=== PATIENT | male | born 1940 | race Caucasian/White ===

== ENCOUNTER 2019-03-30 09:21 | Day surgery (SDC) | payer MEDICARE, BC ==
[~2019-03-30 09:21] MED LIST: Midazolam 1 MG/ML 2 ML SDV ONE; Propofol 200 MG/20 ML SDV ONE
[2019-03-30] MEDS ORDERED: Lactated Ringers 1,000 ML IV SCH (10:00)
[2019-03-30] MEDS ORDERED: Sodium Chloride 0.9% 10 ML Syringe FLUSH PRN (10:00)
--- NOTE | 2019-03-30 11:10 | PCM.HPR ---
H & P Addendum review - H & P Addendum Review Date of Original H & P: 03/27/19 Date Reviewed: 03/30/19 Time Reviewed: 11:10 Patient was Examined: No Changes
[2019-03-30] MEDS ORDERED: Midazolam 1 MG/ML 2 ML SDV ONE (11:18)
[2019-03-30] MEDS ORDERED: Propofol 200 MG/20 ML SDV ONE (11:18)
--- NOTE | 2019-03-30 11:42 | PCM.OPNOTE ---
- General Post-Op/Procedure Note Date of Surgery/Procedure: 03/30/19 Operative Procedure(s): Colonoscopy Findings: Sig Tics Pre Op Diagnosis: Hx Polyps Post-Op Diagnosis: Same Anesthesia Technique: MAC Primary Surgeon: Judd Garza Anesthesia Provider: Geena Dobson Complications: None Condition: Good
[2019-03-30 13:36] VITALS: BP 122/96; PULSE 60
--- NOTE | 2019-03-31 10:19 | OR ---
Date of Procedure: 03/30/2019 PREOPERATIVE DIAGNOSIS: History of colon polyps. POSTOPERATIVE DIAGNOSIS: Sigmoid diverticulosis. PROCEDURE: Colonoscopy. ANESTHESIA: IV sedation. DESCRIPTION OF PROCEDURE: The patient was brought to the procedure room where he was placed on his left side and IV sedation administered. Digital rectal exam was performed which was normal. Colonoscope was inserted and advanced to the level of the cecum with some difficulty getting around the hepatic flexure requiring pressure on the abdomen. Cecum was reached and confirmed by identifying the appendiceal lumen and ileocecal valve. Prep was good and surfaces were well visualized. Upon withdrawing the scope, the ascending, transverse, and descending colon were normal in appearance. Sigmoid colon had several small diverticula present. Rectum was normal and retroflexion was normal. Air was removed and the scope withdrawn. The patient tolerated the procedure well and returned to Recovery in stable condition. No further colon screening is necessary due to the patient's age. DARREN LOWERY MD /[id number]
== END 2019-03-30 13:10 | disposition home or self-care (01) ==
LOC: LL.SDS 09:21
PROVIDERS: ATTEND Surgery
DX: Z12.11 Encounter for screening for malignant neoplasm of colon (principal); K57.30 Diverticulosis of large intestine without perforation or abscess without bleeding; I10 Essential (primary) hypertension; J44.9 Chronic obstructive pulmonary disease, unspecified; K21.9 Gastro-esophageal reflux disease without esophagitis; Z88.6 Allergy status to analgesic agent; Z87.891 Personal history of nicotine dependence; Z86.010 Personal history of colon polyps; Z79.82 Long term (current) use of aspirin; Z79.899 Other long term (current) drug therapy
CPT/HCPCS: G0105; J2250; J2704; J7120; 00812

== ENCOUNTER 2021-10-02 07:46 | Day surgery (SDC) | payer MEDICARE, BC ==
[~2021-10-02 07:46] MED LIST changes: -Midazolam 1 MG/ML 2 ML SDV ONE; +fentaNYL 250 MCG/5 ML SDV ONE
[2021-10-02] MEDS ORDERED: Lactated Ringers 1,000 ML IV SCH (08:00)
[2021-10-02] MEDS ORDERED: Sodium Chloride 0.9% 10 ML Syringe FLUSH SCH (08:00)
[2021-10-02] MEDS ORDERED: Glycopyrrolate 0.2 MG/ML SDV ONE (09:00)
[2021-10-02] MEDS ORDERED: Ondansetron 4 MG/2 ML SDV ONE (09:00)
[2021-10-02] MEDS ORDERED: fentaNYL 250 MCG/5 ML SDV ONE (09:00)
[2021-10-02] MEDS ORDERED: Ketorolac 30 MG/ML SDV ONE (09:00)
[2021-10-02] MEDS ORDERED: Rocuronium 100 MG/10 ML MDV ONE (09:00)
[2021-10-02] MEDS ORDERED: Lidocaine 2% 100 MG/5 ML Syringe ONE (09:00)
[2021-10-02] MEDS ORDERED: Propofol 200 MG/20 ML SDV ONE (09:00)
[2021-10-02] MEDS ORDERED: ceFAZolin 1 GM Vial ONE (09:00)
[2021-10-02] MEDS ORDERED: Dexamethasone 10 MG/ML SDV ONE (09:00)
[2021-10-02] MEDS ORDERED: Neostigmine Methylsulfate 10 MG/10 ML MDV ONE (09:00)
[2021-10-02 13:26] VITALS: BP 151/103; PULSE 76
== END 2021-10-02 12:55 | disposition home or self-care (01) ==
LOC: LL.SDS 07:46
PROVIDERS: ATTEND Surgery
DX: K40.90 Unilateral inguinal hernia, without obstruction or gangrene, not specified as recurrent (principal); D17.6 Benign lipomatous neoplasm of spermatic cord; E87.6 Hypokalemia; H61.23 Impacted cerumen, bilateral; N30.00 Acute cystitis without hematuria; N40.0 Benign prostatic hyperplasia without lower urinary tract symptoms; K21.9 Gastro-esophageal reflux disease without esophagitis; I10 Essential (primary) hypertension; E78.5 Hyperlipidemia, unspecified; M81.0 Age-related osteoporosis without current pathological fracture; J44.9 Chronic obstructive pulmonary disease, unspecified; Z98.890 Other specified postprocedural states; Z79.82 Long term (current) use of aspirin; Z88.8 Allergy status to other drugs, medicaments and biological substances; Z87.891 Personal history of nicotine dependence
CPT/HCPCS: 00750; 88304; C1781; J0690; J1100; J1885; J2405; J2704; J2710; J3010; J3490; J7120

== ENCOUNTER 2022-01-23 12:43 | Inpatient (IN) | payer MEDICARE, BC ==
[2022-01-23] MEDS ORDERED: AMMONIUM LACTATE TOP PRN (17:06)
[2022-01-23] MEDS ORDERED: Lidocaine/Prilocaine 2.5-2.5% Crm 5 GM Tube TOP PRN (17:06)
[2022-01-23] MEDS ORDERED: Non-Formulary Medication 1 Each TOP SCH (17:15)
[2022-01-23] MEDS ORDERED: Non-Formulary Medication 1 Each (Dexamethasone [Dexamethasone] 4 MG Tablet) PO SCH (17:15)
[2022-01-23] MEDS: guaiFENesin 600 MG Tab.ER PO SCH ×2 (18:00→18:52)
[2022-01-23] MEDS ORDERED: Sodium Chloride 0.9% 10 ML Syringe FLUSH ONE (18:13)
[2022-01-23] MEDS: Meclizine 25 MG Tab PO SCH (18:51)
[2022-01-23] MEDS: Acyclovir 200 MG Cap PO SCH (18:51)
[2022-01-23] MEDS: Carvedilol 6.25 MG Tab PO SCH (18:51)
[2022-01-23] MEDS: Calcium Carbonate/Vitamin D3 625 MG-125 Unit Tab PO SCH (18:51)
[2022-01-23] MEDS: Doxazosin 2 MG Tab PO SCH (21:06)
[2022-01-23] MEDS: atorvaSTATin 10 MG Tab PO SCH (21:06)
[2022-01-24 08:23] LABS: CHLORIDE,CL 108 mmol/L (98-107); SODIUM,NA 142 mmol/L (136-145)
[2022-01-24] MEDS: Lutein/Minerals/Vitamin C/Vitamin E Acetate Cap PO SCH (08:25)
[2022-01-24] MEDS: guaiFENesin 600 MG Tab.ER PO SCH ×2 (08:25→17:20)
[2022-01-24] MEDS: Omeprazole 20 MG Cap.CR PO SCH (08:25)
[2022-01-24] MEDS: Meclizine 25 MG Tab PO SCH ×3 (08:25→17:24)
[2022-01-24] MEDS: Magnesium Chloride 64 MG Tab.ER PO SCH (08:25)
[2022-01-24] MEDS: Multivitamin Tab PO SCH (08:25)
[2022-01-24] MEDS: Aspirin 81 MG Tab.EC PO SCH (08:25)
[2022-01-24] MEDS: Lisinopril 20 MG Tab PO SCH (08:25)
[2022-01-24] MEDS: Acyclovir 200 MG Cap PO SCH ×2 (08:25→17:24)
[2022-01-24] MEDS: Carvedilol 6.25 MG Tab PO SCH ×2 (08:25→17:20)
[2022-01-24] MEDS: Calcium Carbonate/Vitamin D3 625 MG-125 Unit Tab PO SCH ×2 (08:26→17:20)
[2022-01-24 08:29] LABS: ANION GAP 17.5 meq/L (7-15)
[2022-01-24] MEDS: [UNRECOGNIZED DRUG - OTHER] PO SCH (08:34)
[2022-01-24] MEDS: atorvaSTATin 10 MG Tab PO SCH (20:12)
[2022-01-24] MEDS: Doxazosin 2 MG Tab PO SCH (20:12)
[2022-01-25] MEDS: Carvedilol 6.25 MG Tab PO SCH ×2 (09:11→19:37)
[2022-01-25] MEDS: Meclizine 25 MG Tab PO SCH ×3 (09:15→19:38)
[2022-01-25] MEDS: Magnesium Chloride 64 MG Tab.ER PO SCH (09:16)
[2022-01-25] MEDS: Aspirin 81 MG Tab.EC PO SCH (09:16)
[2022-01-25] MEDS: guaiFENesin 600 MG Tab.ER PO SCH ×2 (09:17→19:38)
[2022-01-25] MEDS: [UNRECOGNIZED DRUG - OTHER] PO SCH (09:17)
[2022-01-25] MEDS: Omeprazole 20 MG Cap.CR PO SCH (09:17)
[2022-01-25] MEDS: Lutein/Minerals/Vitamin C/Vitamin E Acetate Cap PO SCH (09:17)
[2022-01-25] MEDS: Calcium Carbonate/Vitamin D3 625 MG-125 Unit Tab PO SCH ×2 (09:18→19:37)
[2022-01-25] MEDS: Lisinopril 20 MG Tab PO SCH (09:18)
[2022-01-25] MEDS: Multivitamin Tab PO SCH (09:19)
[2022-01-25] MEDS: Acyclovir 200 MG Cap PO SCH ×2 (09:19→19:38)
[2022-01-25] MEDS: Acetaminophen 325 MG Tab PO PRN (13:19)
[2022-01-25] MEDS: Doxazosin 2 MG Tab PO SCH (19:37)
[2022-01-25] MEDS: atorvaSTATin 10 MG Tab PO SCH (19:37)
[2022-01-26] MEDS: Omeprazole 20 MG Cap.CR PO SCH (08:53)
[2022-01-26] MEDS: Multivitamin Tab PO SCH (08:54)
[2022-01-26] MEDS: Aspirin 81 MG Tab.EC PO SCH (08:54)
[2022-01-26] MEDS: Meclizine 25 MG Tab PO SCH ×3 (08:54→17:43)
[2022-01-26] MEDS: Magnesium Chloride 64 MG Tab.ER PO SCH (08:54)
[2022-01-26] MEDS: Acyclovir 200 MG Cap PO SCH ×2 (08:55→17:43)
[2022-01-26] MEDS: Carvedilol 6.25 MG Tab PO SCH ×2 (08:55→17:43)
[2022-01-26] MEDS: guaiFENesin 600 MG Tab.ER PO SCH ×2 (08:56→17:44)
[2022-01-26] MEDS: Lisinopril 20 MG Tab PO SCH (08:57)
[2022-01-26] MEDS: Lutein/Minerals/Vitamin C/Vitamin E Acetate Cap PO SCH (08:57)
[2022-01-26] MEDS: Calcium Carbonate/Vitamin D3 625 MG-125 Unit Tab PO SCH ×2 (08:58→17:43)
[2022-01-26] MEDS: [UNRECOGNIZED DRUG - OTHER] PO SCH (08:58)
[2022-01-26] MEDS: Sulfamethoxazole/Trimethoprim 800-160 MG Tab PO SCH (12:16)
[2022-01-26] MEDS: Doxazosin 2 MG Tab PO SCH (19:10)
[2022-01-26] MEDS: atorvaSTATin 10 MG Tab PO SCH (19:11)
[2022-01-27] MEDS: Acyclovir 200 MG Cap PO SCH ×2 (07:46→17:13)
[2022-01-27] MEDS: Multivitamin Tab PO SCH (07:47)
[2022-01-27] MEDS: guaiFENesin 600 MG Tab.ER PO SCH ×2 (07:47→17:15)
[2022-01-27] MEDS: Calcium Carbonate/Vitamin D3 625 MG-125 Unit Tab PO SCH ×2 (07:48→17:15)
[2022-01-27] MEDS: Carvedilol 6.25 MG Tab PO SCH ×2 (07:48→17:14)
[2022-01-27] MEDS: Omeprazole 20 MG Cap.CR PO SCH (07:48)
[2022-01-27] MEDS: Aspirin 81 MG Tab.EC PO SCH (07:48)
[2022-01-27] MEDS: Lutein/Minerals/Vitamin C/Vitamin E Acetate Cap PO SCH (07:49)
[2022-01-27] MEDS: Magnesium Chloride 64 MG Tab.ER PO SCH (07:49)
[2022-01-27] MEDS: Lisinopril 20 MG Tab PO SCH (07:49)
[2022-01-27] MEDS: Meclizine 25 MG Tab PO SCH ×3 (07:50→17:15)
[2022-01-27] MEDS: [UNRECOGNIZED DRUG - OTHER] PO SCH (07:52)
[2022-01-27] MEDS: Acetaminophen 325 MG Tab PO PRN (11:28)
[2022-01-27] MEDS: atorvaSTATin 10 MG Tab PO SCH (20:10)
[2022-01-27] MEDS: Doxazosin 2 MG Tab PO SCH (20:10)
[2022-01-28] MEDS: Sulfamethoxazole/Trimethoprim 800-160 MG Tab PO SCH (08:33)
[2022-01-28] MEDS: guaiFENesin 600 MG Tab.ER PO SCH ×2 (08:33→17:19)
[2022-01-28] MEDS: Lutein/Minerals/Vitamin C/Vitamin E Acetate Cap PO SCH (08:33)
[2022-01-28] MEDS: Carvedilol 6.25 MG Tab PO SCH ×2 (08:35→17:19)
[2022-01-28] MEDS: Aspirin 81 MG Tab.EC PO SCH (08:36)
[2022-01-28] MEDS: Meclizine 25 MG Tab PO SCH ×3 (08:36→17:19)
[2022-01-28] MEDS: Omeprazole 20 MG Cap.CR PO SCH (08:36)
[2022-01-28] MEDS: Magnesium Chloride 64 MG Tab.ER PO SCH (08:36)
[2022-01-28] MEDS: Calcium Carbonate/Vitamin D3 625 MG-125 Unit Tab PO SCH ×2 (08:36→17:19)
[2022-01-28] MEDS: Lisinopril 20 MG Tab PO SCH (08:37)
[2022-01-28] MEDS: Acyclovir 200 MG Cap PO SCH ×2 (08:37→17:19)
[2022-01-28] MEDS: Multivitamin Tab PO SCH (08:37)
[2022-01-28] MEDS: [UNRECOGNIZED DRUG - OTHER] PO SCH (08:40)
[2022-01-28] MEDS: atorvaSTATin 10 MG Tab PO SCH (19:09)
[2022-01-28] MEDS: Doxazosin 2 MG Tab PO SCH (19:09)
[2022-01-29] MEDS: Carvedilol 6.25 MG Tab PO SCH ×2 (08:05→17:15)
[2022-01-29] MEDS: Omeprazole 20 MG Cap.CR PO SCH (08:05)
[2022-01-29] MEDS: Magnesium Chloride 64 MG Tab.ER PO SCH (08:05)
[2022-01-29] MEDS: Multivitamin Tab PO SCH (08:05)
[2022-01-29] MEDS: Acyclovir 200 MG Cap PO SCH ×2 (08:05→17:15)
[2022-01-29] MEDS: Lisinopril 20 MG Tab PO SCH (08:06)
[2022-01-29] MEDS: Lutein/Minerals/Vitamin C/Vitamin E Acetate Cap PO SCH (08:06)
[2022-01-29] MEDS: Meclizine 25 MG Tab PO SCH ×3 (08:06→17:15)
[2022-01-29] MEDS: guaiFENesin 600 MG Tab.ER PO SCH ×2 (08:06→17:15)
[2022-01-29] MEDS: Aspirin 81 MG Tab.EC PO SCH (08:06)
[2022-01-29] MEDS: Calcium Carbonate/Vitamin D3 625 MG-125 Unit Tab PO SCH ×2 (08:07→17:15)
[2022-01-29] MEDS: [UNRECOGNIZED DRUG - OTHER] PO SCH (08:09)
[2022-01-29] MEDS: atorvaSTATin 10 MG Tab PO SCH (19:33)
[2022-01-29] MEDS: Doxazosin 2 MG Tab PO SCH (19:33)
[2022-01-30 07:24] VITALS: BP 119/75; PULSE 73
[2022-01-30] MEDS: Acetaminophen 325 MG Tab PO PRN (07:28)
[2022-01-30] MEDS: Meclizine 25 MG Tab PO SCH ×2 (07:29→11:49)
[2022-01-30] MEDS: Omeprazole 20 MG Cap.CR PO SCH (07:29)
[2022-01-30] MEDS: Magnesium Chloride 64 MG Tab.ER PO SCH (07:30)
[2022-01-30] MEDS: Acyclovir 200 MG Cap PO SCH (07:30)
[2022-01-30] MEDS: Calcium Carbonate/Vitamin D3 625 MG-125 Unit Tab PO SCH (07:31)
[2022-01-30] MEDS: Lisinopril 20 MG Tab PO SCH (07:32)
[2022-01-30] MEDS: guaiFENesin 600 MG Tab.ER PO SCH (07:32)
[2022-01-30] MEDS: Lutein/Minerals/Vitamin C/Vitamin E Acetate Cap PO SCH (07:33)
[2022-01-30] MEDS: Carvedilol 6.25 MG Tab PO SCH (07:33)
[2022-01-30] MEDS: Multivitamin Tab PO SCH (07:34)
[2022-01-30] MEDS: Sulfamethoxazole/Trimethoprim 800-160 MG Tab PO SCH (07:34)
[2022-01-30] MEDS: Aspirin 81 MG Tab.EC PO SCH (07:34)
[2022-01-30] MEDS: [UNRECOGNIZED DRUG - OTHER] PO SCH (07:38)
== END 2022-01-30 13:40 | disposition home or self-care (01) | DRG 948 ==
LOC: LL.MS 15:30
PROVIDERS: ADMIT Emergency Medicine; ATTEND Emergency Medicine
DX: R53.81 Other malaise (principal); C90.00 Multiple myeloma not having achieved remission; I10 Essential (primary) hypertension; H35.30 Unspecified macular degeneration; D64.9 Anemia, unspecified; K21.9 Gastro-esophageal reflux disease without esophagitis; E78.5 Hyperlipidemia, unspecified; M81.0 Age-related osteoporosis without current pathological fracture; E78.00 Pure hypercholesterolemia, unspecified; K57.90 Diverticulosis of intestine, part unspecified, without perforation or abscess without bleeding; N40.0 Benign prostatic hyperplasia without lower urinary tract symptoms; E66.9 Obesity, unspecified; M54.9 Dorsalgia, unspecified; G89.29 Other chronic pain; Z88.6 Allergy status to analgesic agent; Z79.899 Other long term (current) drug therapy; Z98.49 Cataract extraction status, unspecified eye; Z68.29 Body mass index [BMI] 29.0-29.9, adult; Z79.82 Long term (current) use of aspirin
CPT/HCPCS: 36415; 80053; 83735; 85025; 97110-GO; 97110-GP; 97161-GP; 97165-GO; 97530-GO; 97530-GP; 97535-GO; A9270-GY; J1642; J3490

== ENCOUNTER 2022-03-19 08:55 | Inpatient (IN) | payer MEDICARE, BC ==
[2022-03-19 09:49] LABS: CHLORIDE,CL 101 mmol/L (98-107); SODIUM,NA 134 mmol/L (136-145)
[2022-03-19 09:50] LABS: ANION GAP 17.4 meq/L (7-15); ESTIMATED GFR 49 mL/min (>=60)
[2022-03-19] MEDS ORDERED: cefTRIAXone 1 GM in Sodium Chloride 0.9% 100 ML IV ONE (10:23)
[2022-03-19] MEDS ORDERED: Non-Formulary Medication 1 Each (Dexamethasone [Dexamethasone] 4 MG Tablet) PO SCH (12:45)
[2022-03-19] MEDS: Acetaminophen 325 MG Tab PO PRN (18:08)
[2022-03-19] MEDS: Acyclovir 200 MG Cap PO SCH (18:08)
[2022-03-19] MEDS: Carvedilol 6.25 MG Tab PO SCH (18:08)
[2022-03-19] MEDS: Meclizine 25 MG Tab PO SCH (18:09)
[2022-03-19] MEDS: Enoxaparin 30 MG/0.3 ML Syringe SUBCUT SCH (18:09)
[2022-03-19] MEDS: Doxazosin 2 MG Tab PO SCH (19:36)
[2022-03-19] MEDS: atorvaSTATin 10 MG Tab PO SCH (19:36)
[2022-03-20 08:00] LABS: ANION GAP 14.7 meq/L (7-15)
[2022-03-20] MEDS: Sulfamethoxazole/Trimethoprim 800-160 MG Tab PO SCH (08:34)
[2022-03-20] MEDS: Acyclovir 200 MG Cap PO SCH ×2 (08:37→17:36)
[2022-03-20] MEDS: Omeprazole 20 MG Cap.CR PO SCH (08:37)
[2022-03-20] MEDS: Meclizine 25 MG Tab PO SCH ×3 (08:38→17:36)
[2022-03-20] MEDS: Aspirin 81 MG Tab.EC PO SCH (08:38)
[2022-03-20] MEDS: Carvedilol 6.25 MG Tab PO SCH ×2 (08:39→17:37)
[2022-03-20] MEDS: Lisinopril 20 MG Tab PO SCH (08:39)
[2022-03-20] MEDS ORDERED: Sodium Chloride 0.9% 500 ML IV SCH (08:45)
[2022-03-20] MEDS: cefTRIAXone 1 GM in Sodium Chloride 0.9% 100 ML IV SCH (10:39)
[2022-03-20] MEDS: Sodium Chloride 0.9% 1,000 ML IV SCH ×2 (12:27→22:30)
[2022-03-20] MEDS: Enoxaparin 30 MG/0.3 ML Syringe SUBCUT SCH (17:37)
[2022-03-20] MEDS: Doxazosin 2 MG Tab PO SCH (19:35)
[2022-03-20] MEDS: atorvaSTATin 10 MG Tab PO SCH (19:36)
[2022-03-20] MEDS: Acetaminophen 325 MG Tab PO PRN (21:25)
[2022-03-21] MEDS: Acyclovir 200 MG Cap PO SCH ×2 (07:00→18:24)
[2022-03-21] MEDS: Meclizine 25 MG Tab PO SCH ×3 (07:01→18:24)
[2022-03-21] MEDS: Aspirin 81 MG Tab.EC PO SCH (07:01)
[2022-03-21] MEDS: Omeprazole 20 MG Cap.CR PO SCH (07:02)
[2022-03-21] MEDS: Carvedilol 6.25 MG Tab PO SCH (07:03)
[2022-03-21] MEDS: Lisinopril 20 MG Tab PO SCH (07:03)
[2022-03-21] MEDS: Acetaminophen 325 MG Tab PO PRN (07:06)
[2022-03-21 07:17] LABS: ANION GAP 15.2 meq/L (7-15)
[2022-03-21] MEDS ORDERED: Sodium Chloride 0.9% 1,000 ML IV ONE ×2 (09:30→15:25)
[2022-03-21] MEDS: cefTRIAXone 1 GM in Sodium Chloride 0.9% 100 ML IV SCH (10:33)
[2022-03-21] MEDS: Enoxaparin 30 MG/0.3 ML Syringe SUBCUT SCH (18:25)
[2022-03-21] MEDS: atorvaSTATin 10 MG Tab PO SCH (19:50)
[2022-03-22] MEDS: Doxazosin 2 MG Tab PO SCH ×2 (00:58→20:47)
[2022-03-22 08:03] LABS: ANION GAP 15.1 meq/L (7-15)
[2022-03-22] MEDS: Meclizine 25 MG Tab PO SCH ×3 (08:29→17:40)
[2022-03-22] MEDS: Omeprazole 20 MG Cap.CR PO SCH (08:29)
[2022-03-22] MEDS: Acyclovir 200 MG Cap PO SCH ×2 (08:30→17:40)
[2022-03-22] MEDS: Acetaminophen 325 MG Tab PO PRN (11:17)
[2022-03-22] MEDS: cefTRIAXone 1 GM in Sodium Chloride 0.9% 100 ML IV SCH (11:22)
[2022-03-22] MEDS: atorvaSTATin 10 MG Tab PO SCH (20:47)
[2022-03-23] MEDS: Acyclovir 200 MG Cap PO SCH ×2 (07:34→17:48)
[2022-03-23] MEDS: Omeprazole 20 MG Cap.CR PO SCH (07:35)
[2022-03-23] MEDS: Sulfamethoxazole/Trimethoprim 800-160 MG Tab PO SCH (07:35)
[2022-03-23] MEDS: Meclizine 25 MG Tab PO SCH (07:35)
[2022-03-23 08:57] LABS: ANION GAP 10.9 meq/L (7-15)
[2022-03-23] MEDS: cefTRIAXone 1 GM in Sodium Chloride 0.9% 100 ML IV SCH (14:41)
[2022-03-23] MEDS: Acetaminophen 325 MG Tab PO PRN (16:23)
[2022-03-24 07:55] LABS: ANION GAP 11.3 meq/L (7-15)
[2022-03-24] MEDS: Omeprazole 20 MG Cap.CR PO SCH (08:12)
[2022-03-24] MEDS: Acyclovir 200 MG Cap PO SCH ×2 (08:12→17:56)
[2022-03-24] MEDS: cefTRIAXone 1 GM in Sodium Chloride 0.9% 100 ML IV SCH (11:42)
[2022-03-24 17:40] VITALS: BP 147/64; PULSE 79
[2022-03-25] MEDS ORDERED: Ciprofloxacin 500 MG Tab PO SCH (18:00)
== END 2022-03-24 23:45 | disposition swing bed (61) | DRG 690 ==
LOC: LL.ED 08:55 → UNDOADMIN 10:55 → LL.MS 10:55 → UNDODISIN 03-24 23:45 → LL.MS 03-24 23:45
PROVIDERS: ADMIT Emergency Medicine; ATTEND Emergency Medicine
DX: N39.0 Urinary tract infection, site not specified (principal); N17.9 Acute kidney failure, unspecified; R53.1 Weakness; C90.00 Multiple myeloma not having achieved remission; Z94.84 Stem cells transplant status; H35.30 Unspecified macular degeneration; D64.9 Anemia, unspecified; I95.2 Hypotension due to drugs; E78.5 Hyperlipidemia, unspecified; D63.8 Anemia in other chronic diseases classified elsewhere; I10 Essential (primary) hypertension; N40.0 Benign prostatic hyperplasia without lower urinary tract symptoms; K57.90 Diverticulosis of intestine, part unspecified, without perforation or abscess without bleeding; K44.9 Diaphragmatic hernia without obstruction or gangrene; E66.9 Obesity, unspecified; G89.29 Other chronic pain; M54.9 Dorsalgia, unspecified; I12.9 Hypertensive chronic kidney disease with stage 1 through stage 4 chronic kidney disease, or unspecified chronic kidney disease; Z88.8 Allergy status to other drugs, medicaments and biological substances; N18.30 Chronic kidney disease, stage 3 unspecified; M81.0 Age-related osteoporosis without current pathological fracture; K21.9 Gastro-esophageal reflux disease without esophagitis; W06.XXXA Fall from bed, initial encounter; E83.42 Hypomagnesemia; J44.9 Chronic obstructive pulmonary disease, unspecified; E86.0 Dehydration; E78.2 Mixed hyperlipidemia; Z79.82 Long term (current) use of aspirin; Z79.899 Other long term (current) drug therapy; Z79.52 Long term (current) use of systemic steroids; Z68.27 Body mass index [BMI] 27.0-27.9, adult; Z97.3 Presence of spectacles and contact lenses; Z97.2 Presence of dental prosthetic device (complete) (partial); Z87.19 Personal history of other diseases of the digestive system; Z86.010 Personal history of colon polyps; Z87.440 Personal history of urinary (tract) infections; Z85.828 Personal history of other malignant neoplasm of skin; Z98.42 Cataract extraction status, left eye; Z98.41 Cataract extraction status, right eye; Z90.89 Acquired absence of other organs; Z98.890 Other specified postprocedural states; T50.995A Adverse effect of other drugs, medicaments and biological substances, initial encounter; Y92.89 Other specified places as the place of occurrence of the external cause
CPT/HCPCS: 36415; 71046; 73562-LT; 80048; 80053; 81001; 82550; 83605; 83735; 84484; 85025; 85027; 93005; 96365; 97110-GP; 97162-GP; 97165-GO; 99285-25; A9270-GY; J0696; J1650; J3475; J7030; J7040

== ENCOUNTER 2022-03-24 16:14 | Inpatient (IN) | payer MEDICARE, BC ==
[2022-03-24] MEDS ORDERED: DEXAMETHASONE PO SCH (23:40)
[2022-03-24] MEDS ORDERED: LENALIDOMIDE 5 MG PO SCH (23:40)
[2022-03-25] MEDS: Acyclovir 200 MG Cap PO SCH ×2 (09:17→17:57)
[2022-03-25] MEDS: Omeprazole 20 MG Cap.CR PO SCH (09:17)
[2022-03-25] MEDS: Sulfamethoxazole/Trimethoprim 800-160 MG Tab PO SCH (09:18)
[2022-03-25] MEDS: Ciprofloxacin 500 MG Tab PO SCH ×2 (09:28→17:57)
[2022-03-26] MEDS: Ciprofloxacin 500 MG Tab PO SCH ×2 (07:32→17:33)
[2022-03-26] MEDS: Acyclovir 200 MG Cap PO SCH ×2 (07:33→17:33)
[2022-03-26] MEDS: Omeprazole 20 MG Cap.CR PO SCH (07:33)
[2022-03-26] MEDS: Acetaminophen 325 MG Tab PO PRN (11:58)
[2022-03-27] MEDS: Sulfamethoxazole/Trimethoprim 800-160 MG Tab PO SCH (08:06)
[2022-03-27] MEDS: Omeprazole 20 MG Cap.CR PO SCH (08:07)
[2022-03-27] MEDS: Ciprofloxacin 500 MG Tab PO SCH (08:07)
[2022-03-27] MEDS: Acyclovir 200 MG Cap PO SCH ×2 (08:07→17:58)
[2022-03-28] MEDS ORDERED: Ondansetron 4 MG Tab.DIS PO PRN (04:56)
[2022-03-28] MEDS: Acyclovir 200 MG Cap PO SCH ×2 (08:03→17:42)
[2022-03-28] MEDS: Omeprazole 20 MG Cap.CR PO SCH (08:03)
[2022-03-28] MEDS: Acetaminophen 325 MG Tab PO PRN (21:30)
[2022-03-28] MEDS: Loperamide 2 MG Tab PO PRN (21:30)
[2022-03-29] MEDS: Loperamide 2 MG Tab PO PRN (06:21)
[2022-03-29] MEDS: Lactobacillus Rhamnosus GG (Probiotic) Cap PO SCH (07:48)
[2022-03-29] MEDS: Omeprazole 20 MG Cap.CR PO SCH (07:48)
[2022-03-29] MEDS: Acyclovir 200 MG Cap PO SCH ×2 (07:49→17:27)
[2022-03-29] MEDS: Acetaminophen 325 MG Tab PO PRN (19:36)
[2022-03-30] MEDS: Acyclovir 200 MG Cap PO SCH ×2 (08:43→18:09)
[2022-03-30] MEDS: Omeprazole 20 MG Cap.CR PO SCH (08:43)
[2022-03-30] MEDS: Sulfamethoxazole/Trimethoprim 800-160 MG Tab PO SCH (08:43)
[2022-03-30] MEDS: Lactobacillus Rhamnosus GG (Probiotic) Cap PO SCH (08:44)
[2022-03-31] MEDS: Lactobacillus Rhamnosus GG (Probiotic) Cap PO SCH (07:03)
[2022-03-31] MEDS: Omeprazole 20 MG Cap.CR PO SCH (07:04)
[2022-03-31] MEDS: Acyclovir 200 MG Cap PO SCH ×2 (07:05→17:24)
[2022-04-01] MEDS: Sulfamethoxazole/Trimethoprim 800-160 MG Tab PO SCH (08:24)
[2022-04-01] MEDS: Omeprazole 20 MG Cap.CR PO SCH (08:24)
[2022-04-01] MEDS: Acyclovir 200 MG Cap PO SCH ×2 (08:24→17:10)
[2022-04-01] MEDS: Lactobacillus Rhamnosus GG (Probiotic) Cap PO SCH (08:24)
[2022-04-02] MEDS: Acyclovir 200 MG Cap PO SCH ×2 (08:45→17:45)
[2022-04-02] MEDS: Omeprazole 20 MG Cap.CR PO SCH (08:45)
[2022-04-02] MEDS: Lactobacillus Rhamnosus GG (Probiotic) Cap PO SCH (08:45)
[2022-04-02] MEDS: Acetaminophen 325 MG Tab PO PRN ×2 (08:46→17:45)
[2022-04-03] MEDS: Lactobacillus Rhamnosus GG (Probiotic) Cap PO SCH (08:37)
[2022-04-03] MEDS: Omeprazole 20 MG Cap.CR PO SCH (08:37)
[2022-04-03] MEDS: Acetaminophen 325 MG Tab PO PRN (08:38)
[2022-04-03] MEDS: Acyclovir 200 MG Cap PO SCH ×2 (08:39→18:15)
[2022-04-03] MEDS: Sulfamethoxazole/Trimethoprim 800-160 MG Tab PO SCH (08:39)
[2022-04-04] MEDS: Acyclovir 200 MG Cap PO SCH ×2 (08:27→17:17)
[2022-04-04] MEDS: Omeprazole 20 MG Cap.CR PO SCH (08:27)
[2022-04-04] MEDS: Acetaminophen 325 MG Tab PO PRN (08:27)
[2022-04-04] MEDS: Lactobacillus Rhamnosus GG (Probiotic) Cap PO SCH (08:27)
[2022-04-05] MEDS: Acyclovir 200 MG Cap PO SCH ×2 (08:43→17:27)
[2022-04-05] MEDS: Acetaminophen 325 MG Tab PO PRN (08:44)
[2022-04-05] MEDS: Omeprazole 20 MG Cap.CR PO SCH (08:44)
[2022-04-05] MEDS: Lactobacillus Rhamnosus GG (Probiotic) Cap PO SCH (08:44)
[2022-04-06] MEDS: Acyclovir 200 MG Cap PO SCH ×2 (07:41→18:14)
[2022-04-06] MEDS: Acetaminophen 325 MG Tab PO PRN ×2 (07:42→19:33)
[2022-04-06] MEDS: Lactobacillus Rhamnosus GG (Probiotic) Cap PO SCH (07:42)
[2022-04-06] MEDS: Sulfamethoxazole/Trimethoprim 800-160 MG Tab PO SCH (07:43)
[2022-04-06] MEDS: Omeprazole 20 MG Cap.CR PO SCH (07:43)
[2022-04-07] MEDS: Omeprazole 20 MG Cap.CR PO SCH (07:30)
[2022-04-07] MEDS: Acyclovir 200 MG Cap PO SCH ×2 (07:30→17:04)
[2022-04-07] MEDS: Lactobacillus Rhamnosus GG (Probiotic) Cap PO SCH (07:30)
[2022-04-07] MEDS: Acetaminophen 325 MG Tab PO PRN ×2 (07:31→20:13)
[2022-04-07] MEDS: Loperamide 2 MG Tab PO PRN (18:19)
[2022-04-08] MEDS: Acyclovir 200 MG Cap PO SCH (08:02)
[2022-04-08] MEDS: Sulfamethoxazole/Trimethoprim 800-160 MG Tab PO SCH (08:02)
[2022-04-08] MEDS: Lactobacillus Rhamnosus GG (Probiotic) Cap PO SCH (08:02)
[2022-04-08] MEDS: Omeprazole 20 MG Cap.CR PO SCH (08:03)
[2022-04-08] MEDS: Acetaminophen 325 MG Tab PO PRN (08:10)
[2022-04-08 08:16] VITALS: BP 135/89; PULSE 86
== END 2022-04-08 12:24 | disposition home or self-care (01) | DRG 948 ==
LOC: LL.MS 23:50 → UNDOADMIN 03-25
PROVIDERS: ADMIT Hospitalist; ATTEND Physician Assistant
DX: R53.1 Weakness (principal); N39.0 Urinary tract infection, site not specified; D84.9 Immunodeficiency, unspecified; C90.00 Multiple myeloma not having achieved remission; H54.7 Unspecified visual loss; E78.00 Pure hypercholesterolemia, unspecified; J44.9 Chronic obstructive pulmonary disease, unspecified; K21.9 Gastro-esophageal reflux disease without esophagitis; N40.0 Benign prostatic hyperplasia without lower urinary tract symptoms; M54.9 Dorsalgia, unspecified; G89.29 Other chronic pain; M81.0 Age-related osteoporosis without current pathological fracture; E66.9 Obesity, unspecified; D64.9 Anemia, unspecified; Z98.49 Cataract extraction status, unspecified eye; Z87.440 Personal history of urinary (tract) infections; Z88.6 Allergy status to analgesic agent; Z79.82 Long term (current) use of aspirin; Z79.899 Other long term (current) drug therapy; I95.89 Other hypotension; D63.1 Anemia in chronic kidney disease; N18.30 Chronic kidney disease, stage 3 unspecified; I12.9 Hypertensive chronic kidney disease with stage 1 through stage 4 chronic kidney disease, or unspecified chronic kidney disease; E78.2 Mixed hyperlipidemia
CPT/HCPCS: 97110-GO; 97110-GP; 97129-GO; 97162-GP; 97530-GO; 97530-GP; 97535-GO; A9270-GY

== ENCOUNTER 2022-06-14 19:47 | Emergency (ER) | payer MEDICARE, BC ==
[2022-06-14 20:50] LABS: CORONAVIRUS COVID-19 NAA NEGATIVE (NEGATIVE); RESPIRATORY SYNCYTIAL VIR NAA NEGATIVE (NEGATIVE)
[2022-06-14] MEDS: Sodium Chloride 0.9% 1,000 ML IV ONE (21:10)
[2022-06-14 21:34] LABS: ANION GAP 20.9 meq/L (7-15); CHLORIDE,CL 105 mmol/L (98-107); ESTIMATED GFR 45 mL/min (>=60); SODIUM,NA 140 mmol/L (136-145)
[2022-06-15 11:04] VITALS: BP 101/60; PULSE 85
== END 2022-06-15 01:30 ==
LOC: LL.ED 19:47
DX: R53.1 Weakness (principal); J44.9 Chronic obstructive pulmonary disease, unspecified; C90.00 Multiple myeloma not having achieved remission; I10 Essential (primary) hypertension; E66.9 Obesity, unspecified; Z88.6 Allergy status to analgesic agent; Z79.899 Other long term (current) drug therapy; Z87.891 Personal history of nicotine dependence; Z20.822 Contact with and (suspected) exposure to COVID-19; W19.XXXA Unspecified fall, initial encounter
CPT/HCPCS: 0241U; 36415; 51702; 80053; 81001; 82550; 83605; 85025; 96360; 96361; 99284; 99285-25; J7030